=== PATIENT | male | born 1990 | race Caucasian/White ===

== ENCOUNTER 2023-04-21 13:46 | Emergency (ER) | payer SELFPAY ==
[2023-04-21] VITALS (18 sets, daily range): BP systolic 87–112; BP diastolic 34–85; BMI 28.7
--- NOTE | 2023-04-21 14:08 | ED.GENMED ---
History of Present Illness
General
Chief Complaint: Overdose Intentional
Source: patient
Time Seen by Provider: 04/21/23 13:58
Travel History
Have you had any contact with someone who has COVID-19?: No
Do you have any symptoms of coronavirus? Fever > 100 degrees, chills, cough, shortness of breath, sore throat, loss of taste or smell, muscle aches, or headache?: No
History of Present Illness
History of Present Illness:
32-year-old male brought to the emerged by ambulance after being found unresponsive by his mother. Patient insufflated 2 bags of heroin. He also drank at least 2 beers. He denies ingesting any pills. Patient did this in a suicide attempt. He
had evidently left a suicide note. Mom found him he was unresponsive and she started CPR. Him police arrived first they administered nasal Narcan x 2. Paramedics arrived the patient was awake and breathing spontaneously. During transport to the
hospital he again became somnolent and 1 mg of IV the Narcan was given. At the time my evaluation patient is awake, answering questions appropriately and does not deny that this was a suicide attempt. He states he was thinking about killing
himself last night and wishes he had done it last night because that he would not have been found by his mom. He states he is angry at his mother for saving him.
Past History
Past History
ED Past Medical History: Asthma and Other (Poor circulation in feet)
ED Past Surgical History: None
Social History
Tobacco: Smoker
Alcohol: Occasional
Personal: Single
Living: with family
Phy Exam
Physical Exam
Physical Exam:
General: Awake, Alert, Oriented X3. No acute distress.
Vitals: unremarkable
Head: Atraumatic
Eyes: Pupils equal at 3 mm, EOMI
Throat: Airway intact, no exudates
Neck: Trachea midline
Lungs: Clear and equal b/l
Heart: Regular rate, no murmurs
Abd: Soft, Nontender, No pulsatile mass
Neuro: Nonfocal
Skin: Warm, dry, no rash
Extremities: pulses equal b/l, no edema
Course
Orders/Labs/Results
Orders:
Orders
04/21/23 14:03
Electrocardiogram (*1) Urgent
Reason for Study: Other
Other Reason for Exam: Potential overdose
Bedside Glucose- Treatment ONCE
Cardiac Monitoring- Treatment ONCE
EKG- Treatment ONCE
IV Insert/Care/Rem.- Treatment PRN
Pulse Ox/spot Check [RESP] Urgent
Quantity: 1
04/21/23 14:05
Acetaminophen Urgent
Alcohol Urgent
Complete Blood Count/With Diff Urgent
Comprehensive Metabolic Panel Urgent
Salicylate Urgent
04/21/23 14:08
0.9% Sodium Chloride 1000 ml [Nss] 1,000 ml IV BOLUS
04/21/23 15:09
Drug Screen, Urine [Urine Drug Abuse Screen] Urgent
Date Specimen was Collected: 04/21/23
Time Specimen was Collected: 15:09
Fentanyl, Urine Urgent
04/21/23 18:30
Nicotine [Nicoderm Transdermal] 14 mg TRANSDERM NOW STA
04/22/23 08:00
Nicotine [Nicoderm Transdermal] 14 mg TRANSDERM DAILY
Abnormal Lab Results
04/21/23 04/21/23
14:05 15:09
WBC 14.7 H 10^3/uL
(4.8-10.8)
Abs Immat Gran (auto) 0.1 H 10^3/uL
(0-0.05)
Absolute Neuts (auto) 12.5 H 10^3/uL
(1.4-6.5)
Absolute Lymphs (auto) 1.0 L 10^3/uL
(1.2-3.4)
Absolute Monos (auto) 1.0 H 10^3/uL
(0.1-0.6)
Neutrophils % 85.4 H %
(42.2-75.2)
Lymphocytes % 6.9 L %
(20.5-51.1)
Sodium 133 L mmol/L
(135-145)
Creatinine 1.5 H mg/dL
(0.7-1.3)
Glucose 146 H mg/dl
(70-99)
AST 244 H U/L
(17-59)
ALT 72 H U/L
(0-50)
Total Protein 6.2 L g/dl
(6.3-8.2)
Salicylates < 1.0 L mg/dl
(2.0-20.0)
Urine Fentanyl Screen Positive H
(Negative)
Acetaminophen < 10 L ug/ml
(10-30)
U Marijuana (THC) Screen Positive H
(Negative)
04/21/23 14:05
04/21/23 14:05
Vital Signs
Initial and Last Documented VS:
Initial Vital Signs
BP
112/65
04/21/23 13:50
Last Documented Vital Signs
Temp Pulse Resp BP Pulse Ox
98.7 F 58 19 95/45 97
04/21/23 13:52 04/21/23 17:15 04/21/23 17:15 04/21/23 17:15 04/21/23 17:07
MDM/Problems Addressed
Differential Diagnosis Includes:
Opiate overdose, acetaminophen overdose, alcohol intoxication
MDM/Problems Addressed:
Patient received multiple doses of Narcan. Here in the emergency room he remained stable not requiring any further doses of Narcan. Police petition for 302. I agree the patient clearly demonstrates suicidal thoughts and is remaining suicidal.
302 upheld.
*EKG
Interpreted by ED Provider?: Yes
Heart Rate: 61
Rate: normal
Rhythm: sinus
Sherman: normal axis
Interval: normal interval
QRS Pattern: normal QRS
Ischemia: no ischemia
*Inward Toll Operator Interpretation
Rate: normal
Interpretation: normal
Heart Rate: 61
Rhythm: sinus
*Critical Care Note
Total Time (30-74mins, 75-104mins- exclusive of procedures): Not Applicable
ED Attending Note
-
Portions of this chart may have been created with voice recognition software.� Occasional wrong word or��sound alike� substitutions may have occurred due to the inherent limitations of voice recognition software.
Discharge Plan
Departure
Patient Disposition: Psych Facility
Date of Disposition: 04/21/23
Time of Disposition: 15:47
Patient Status:: 302
Discharge Problem:
Suicide attempt, Intentional opiate overdose
Prescriptions:
No Action
prednisone 20 mg tablet
40 mg PO DAILY Qty: 8 0RF
amoxicillin-pot clavulanate 875-125 mg tablet
1 tab PO BID Qty: 19 0RF
Referrals:
NONE,* [Family Provider] -
Interventions
Interventions:
*Risk Screen - Suicide Last Done: 04/21/23 13:55
*General Assessment Last Done: 04/21/23 13:55
*Neglect/Abuse Screening Last Done: 04/21/23 13:55
ED- Fall Risk Assessment Last Done: 04/21/23 14:29
*ED COVID-19 Vaccine History Last Done: 04/21/23 13:55
ED- Cardiac Assessment Last Done: 04/21/23 14:29
ED- Neurological Assessment Last Done: 04/21/23 14:29
ED-Psychological Assessment Last Done: 04/21/23 14:29
ED- Pulmonary Assessment Last Done: 04/21/23 14:29
[2023-04-21 14:12] LABS: % Basophils 0.4 % (0-2); % Eosinophils 0.3 % (0-6); % Immature Granulocytes 0.5 % (0-0.5); % Lymphocytes 6.9 % (20.5-51.1); % Monocytes 6.5 % (1.7-9.3); % Neutrophils 85.4 % (42.2-75.2); Absolute Basophils 0.1 10^3/uL (0-0.2); Absolute Immature Granulocytes 0.1 10^3/uL (0-0.05); Absolute Neutrophils 12.5 10^3/uL (1.4-6.5); Hemoglobin 14.8 g/dL (13.0-18.0); Mean Corp Hgb Conc. 35.2 g/dL (33.0-37.0); Mean Corpuscular Volume 87.9 fL (80.0-94.0); Mean Platelet Volume 9.7 fL (7.4-10.4); Nucleated Red Blood Cells % 0 % (-); Platelet Count 247 10^3/uL (130-400); Red Blood Cell Count 4.78 10^6/uL (4.70-6.10); Red Cell Dist. Width 12.4 % (11.5-14.5); White Blood Cell Count 14.7 10^3/uL (4.8-10.8)
[2023-04-21] MEDS: NSS 1000 IV (14:12)
[2023-04-21 14:28] LABS: ALT (SGPT) 72 U/L (0-50); AST (SGOT) 244 U/L (17-59); Acetaminophen < 10 ug/ml (10-30); Albumin 3.9 g/dl (3.5-5.0); Alkaline Phosphatase 73 U/L (38-126); Blood Urea Nitrogen 17 mg/dl (9-20); Calcium 8.4 mg/dl (8.4-10.2); Carbon Dioxide 26 mmol/L (22-30); Chloride 100 mmol/L (98-107); Estimated Creatinine Clearance 65 ml/min; Glucose 146 mg/dl (70-99); Potassium 3.5 mmol/L (3.5-5.1); Salicylate < 1.0 mg/dl (2.0-20.0); Sodium 133 mmol/L (135-145); Total Bilirubin 0.6 mg/dl (0.2-1.3); Total Protein 6.2 g/dl (6.3-8.2); eGFR > 60.00
[2023-04-21 14:30] LABS: Alcohol None Detected
[2023-04-21 15:43] LABS: Amphetamines Negative (Negative)
[2023-04-21 15:44] LABS: Barbiturates Negative (Negative); Benzodiazepines Negative (Negative); Buprenorphine Negative (Negative); Cocaine Negative (Negative); Marijuana Positive (Negative); Methadone Negative (Negative); Methamphetamines Negative (Negative); Opiates Negative (Negative); Phencyclidine Negative (Negative); Tricyclic Antidepressants Negative (Negative)
[2023-04-21 16:04] LABS: Fentanyl, Urine Positive (Negative)
[2023-04-21] MEDS: NICODERM TRANSDERMAL 14 MG TRANSDERM (18:51)
--- NOTE | 2023-04-21 23:55 | ED.GENMED ---
History of Present Illness
General
Chief Complaint: Overdose Intentional
Time Seen by Provider: 04/21/23 13:58
Travel History
Have you had any contact with someone who has COVID-19?: No
Do you have any symptoms of coronavirus? Fever > 100 degrees, chills, cough, shortness of breath, sore throat, loss of taste or smell, muscle aches, or headache?: No
History of Present Illness
History of Present Illness:
.
Past History
Past History
ED Past Medical History: Asthma and Other (Poor circulation in feet)
ED Past Surgical History: None
Social History
Tobacco: Smoker
Alcohol: Occasional
Personal: Single
Living: with family
Phy Exam
Physical Exam
Physical Exam:
.
Course
Orders/Labs/Results
Orders:
Orders
04/21/23 14:03
Electrocardiogram (*1) Urgent
Reason for Study: Other
Other Reason for Exam: Potential overdose
Bedside Glucose- Treatment ONCE
Cardiac Monitoring- Treatment ONCE
EKG- Treatment ONCE
IV Insert/Care/Rem.- Treatment PRN
Pulse Ox/spot Check [RESP] Urgent
Quantity: 1
04/21/23 14:05
Acetaminophen Urgent
Alcohol Urgent
Complete Blood Count/With Diff Urgent
Comprehensive Metabolic Panel Urgent
Salicylate Urgent
04/21/23 14:08
0.9% Sodium Chloride 1000 ml [Nss] 1,000 ml IV BOLUS
04/21/23 15:09
Drug Screen, Urine [Urine Drug Abuse Screen] Urgent
Date Specimen was Collected: 04/21/23
Time Specimen was Collected: 15:09
Fentanyl, Urine Urgent
04/21/23 18:30
Nicotine [Nicoderm Transdermal] 14 mg TRANSDERM NOW STA
04/21/23 23:55
Zolpidem Tartrate [Ambien] 5 mg PO NOW STA
04/22/23 08:00
Nicotine [Nicoderm Transdermal] 14 mg TRANSDERM DAILY
Abnormal Lab Results
04/21/23 04/21/23
14:05 15:09
WBC 14.7 H 10^3/uL
(4.8-10.8)
Abs Immat Gran (auto) 0.1 H 10^3/uL
(0-0.05)
Absolute Neuts (auto) 12.5 H 10^3/uL
(1.4-6.5)
Absolute Lymphs (auto) 1.0 L 10^3/uL
(1.2-3.4)
Absolute Monos (auto) 1.0 H 10^3/uL
(0.1-0.6)
Neutrophils % 85.4 H %
(42.2-75.2)
Lymphocytes % 6.9 L %
(20.5-51.1)
Sodium 133 L mmol/L
(135-145)
Creatinine 1.5 H mg/dL
(0.7-1.3)
Glucose 146 H mg/dl
(70-99)
AST 244 H U/L
(17-59)
ALT 72 H U/L
(0-50)
Total Protein 6.2 L g/dl
(6.3-8.2)
Salicylates < 1.0 L mg/dl
(2.0-20.0)
Urine Fentanyl Screen Positive H
(Negative)
Acetaminophen < 10 L ug/ml
(10-30)
U Marijuana (THC) Screen Positive H
(Negative)
04/21/23 14:05
04/21/23 14:05
Vital Signs
Initial and Last Documented VS:
Initial Vital Signs
BP
112/65
04/21/23 13:50
Last Documented Vital Signs
Temp Pulse Resp BP Pulse Ox
97.6 F 64 16 109/63 98
04/21/23 21:08 04/21/23 21:08 04/21/23 21:08 04/21/23 21:08 04/21/23 21:08
*Critical Care Note
Total Time (30-74mins, 75-104mins- exclusive of procedures): Not Applicable
Update Note
Update Note:
1155 pm pt awake and alert, describes very infrequent opioid use and does not suspect he will go through withdrawal, no regular benzo use, last meth use at least a month ago. Requesting med for insomnia. Will give small dose ambien.
ED Attending Note
-
Portions of this chart may have been created with voice recognition software.� Occasional wrong word or��sound alike� substitutions may have occurred due to the inherent limitations of voice recognition software.
Discharge Plan
Departure
Patient Disposition: Psych Facility
Date of Disposition: 04/21/23
Time of Disposition: 15:47
Patient Status:: 302
Discharge Problem:
Suicide attempt, Intentional opiate overdose
Prescriptions:
No Action
prednisone 20 mg tablet
40 mg PO DAILY Qty: 8 0RF
amoxicillin-pot clavulanate 875-125 mg tablet
1 tab PO BID Qty: 19 0RF
Referrals:
NONE,* [Family Provider] -
Interventions
Interventions:
*Risk Screen - Suicide Last Done: 04/21/23 13:55
*General Assessment Last Done: 04/21/23 13:55
*Neglect/Abuse Screening Last Done: 04/21/23 13:55
ED- Fall Risk Assessment Last Done: 04/21/23 14:29
*ED COVID-19 Vaccine History Last Done: 04/21/23 13:55
ED- Cardiac Assessment Last Done: 04/21/23 14:29
ED- Neurological Assessment Last Done: 04/21/23 14:29
ED-Psychological Assessment Last Done: 04/21/23 14:29
ED- Pulmonary Assessment Last Done: 04/21/23 14:29
[2023-04-22] MEDS: AMBIEN 5 MG PO
== END 2023-04-22 11:36 ==
LOC: EMR 13:46
PROVIDERS: EMERGENCY PHYSICIAN Emergency Medicine
DX: T40.1X2A Poisoning by heroin, intentional self-harm, initial encounter (principal); F17.200 Nicotine dependence, unspecified, uncomplicated
CPT/HCPCS: 99285; 96360; 80053; 80143; 80179; 80306; 80307; 82077; 85025; 93005

== ENCOUNTER 2023-05-17 15:04 | Emergency (ER) | payer BC, SELFPAY ==
[2023-05-17 15:07] VITALS: BMI 29.0
[2023-05-17 15:13] VITALS: BP 149/88
[2023-05-17 15:30] LABS: % Eosinophils 1.1 % (0-6); % Immature Granulocytes 0.5 % (0-0.5); % Lymphocytes 13.5 % (20.5-51.1); % Monocytes 6.5 % (1.7-9.3); % Neutrophils 77.4 % (42.2-75.2); Absolute Basophils 0.1 10^3/uL (0-0.2); Absolute Eosinophils 0.1 10^3/uL (0-0.7); Absolute Immature Granulocytes 0.1 10^3/uL (0-0.05); Absolute Lymphocytes 1.5 10^3/uL (1.2-3.4); Absolute Monocytes 0.7 10^3/uL (0.1-0.6); Absolute Neutrophils 8.4 10^3/uL (1.4-6.5); Hematocrit 48.1 % (39.0-52.0); Hemoglobin 17.1 g/dL (13.0-18.0); Mean Corp Hgb Conc. 35.6 g/dL (33.0-37.0); Mean Corpuscular Hgb 30.6 pg (27.0-31.0); Mean Corpuscular Volume 86.2 fL (80.0-94.0); Mean Platelet Volume 9.4 fL (7.4-10.4); Nucleated Red Blood Cells % 0 % (-); Platelet Count 322 10^3/uL (130-400); Red Blood Cell Count 5.58 10^6/uL (4.70-6.10); Red Cell Dist. Width 11.9 % (11.5-14.5); White Blood Cell Count 10.8 10^3/uL (4.8-10.8)
[2023-05-17 15:44] LABS: ALT (SGPT) 23 U/L (0-50); AST (SGOT) 25 U/L (17-59); Acetaminophen < 10 ug/ml (10-30); Albumin 4.4 g/dl (3.5-5.0); Alkaline Phosphatase 82 U/L (38-126); Blood Urea Nitrogen 15 mg/dl (9-20); Calcium 9.5 mg/dl (8.4-10.2); Carbon Dioxide 24 mmol/L (22-30); Estimated Creatinine Clearance 85 ml/min; Glucose 93 mg/dl (70-99); Salicylate < 1.0 mg/dl (2.0-20.0); Total Bilirubin 0.6 mg/dl (0.2-1.3); Total Protein 7.3 g/dl (6.3-8.2); eGFR > 60.00
[2023-05-17 15:46] LABS: Alcohol None Detected
--- NOTE | 2023-05-17 15:47 | ED.GENMED ---
History of Present Illness
General
Chief Complaint: Crisis Evaluation
Source: patient
Exam Limitations: none
Time Seen by Provider: 05/17/23 15:18
Nursing documentation reviewed up to this point in time: agreed with
Travel History
Have you had any contact with someone who has COVID-19?: No
Do you have any symptoms of coronavirus? Fever > 100 degrees, chills, cough, shortness of breath, sore throat, loss of taste or smell, muscle aches, or headache?: No
History of Present Illness
History of Present Illness:
33-year-old male history of mental illness he states he has been having thoughts of harming himself and harming others 302 completed by his mother he has been at [facility], he tells me this all started about a year ago after he used
methamphetamine
Past History
Past History
ED Past Medical History: Asthma, Psychiatric and Other (Poor circulation in feet)
ED Past Surgical History: None
Social History
Tobacco: Smoker
Alcohol: Occasional
Drug: Former user
Personal: Single
Living: with family
Employment: Employed
Review of Systems
Review of Systems
All Other Systems: Not applicable
Psychiatric: Reports suicidal, hallucinations and other (Homicidal)
Phy Exam
Physical Exam
Physical Exam:
Physical Exam
General: no apparent distress, not acutely ill
Neck: Without jaundice
Heart: Regular
Lungs: no acute respiratory distress. clear bilaterally
Neuro: alert and oriented. no focal neurological deficits
Skin: no rash
Psychiatric: Cooperative admits to suicidal thoughts and occasional homicidal thoughts
Extremities: no edema.
Course
Orders/Labs/Results
Orders:
Orders
05/17/23 15:18
Acetaminophen Urgent
Alcohol Urgent
Complete Blood Count/With Diff Urgent
Comprehensive Metabolic Panel Urgent
Salicylate Urgent
Abnormal Lab Results
05/17/23
15:18
Abs Immat Gran (auto) 0.1 H 10^3/uL
(0-0.05)
Absolute Neuts (auto) 8.4 H 10^3/uL
(1.4-6.5)
Absolute Monos (auto) 0.7 H 10^3/uL
(0.1-0.6)
Neutrophils % 77.4 H %
(42.2-75.2)
Lymphocytes % 13.5 L %
(20.5-51.1)
Salicylates < 1.0 L mg/dl
(2.0-20.0)
Acetaminophen < 10 L ug/ml
(10-30)
05/17/23 15:18
05/17/23 15:18
Vital Signs
Initial and Last Documented VS:
Initial Vital Signs
Temp Pulse Resp BP Pulse Ox
98.9 F 96 16 149/88 98
05/17/23 15:13 05/17/23 15:13 05/17/23 15:13 05/17/23 15:13 05/17/23 15:13
Last Documented Vital Signs
Temp Pulse Resp BP Pulse Ox
98.9 F 96 16 149/88 98
05/17/23 15:13 05/17/23 15:13 05/17/23 15:13 05/17/23 15:13 05/17/23 15:13
MDM/Problems Addressed
Differential Diagnosis Includes:
Acute psychosis acute suicidality homicidality medication induced psychosis
MDM/Problems Addressed:
Psychosis
Chronic conditions affecting care:
Mental illness
*Critical Care Note
Total Time (30-74mins, 75-104mins- exclusive of procedures): Not Applicable
Update Note
Update Note:
4:30 PM labs noted, patient 302 upheld by psychiatry I concur medically clear
ED Attending Note
-
Portions of this chart may have been created with voice recognition software.� Occasional wrong word or��sound alike� substitutions may have occurred due to the inherent limitations of voice recognition software.
Discharge Plan
Departure
Patient Disposition: Psych Facility
Date of Disposition: 05/17/23
Time of Disposition: 16:29
Discharge Problem:
Suicidal ideation
Prescriptions:
No Action
prednisone 20 mg tablet
40 mg PO DAILY Qty: 8 0RF
amoxicillin-pot clavulanate 875-125 mg tablet
1 tab PO BID Qty: 19 0RF
Interventions
Interventions:
*Risk Screen - Suicide Last Done: 05/17/23 15:07
*General Assessment Last Done: 05/17/23 15:07
*Neglect/Abuse Screening Last Done: 05/17/23 15:07
ED- Fall Risk Assessment Last Done: 05/17/23 15:13
*ED COVID-19 Vaccine History Last Done: 05/17/23 15:07
[2023-05-17 15:55] LABS: Chloride 104 mmol/L (98-107); Potassium 3.8 mmol/L (3.5-5.1); Sodium 138 mmol/L (135-145)
--- NOTE | 2023-05-17 16:36 | W.PN.UPDATE ---
Update Note
Progress Note Update
Pt seen for 302 exam. Pt resting on stretcher, alert, calm, cooperative, making good eye contact. Pt appears distressed, reports intrusive impulses/thoughts of hurting others which are distressing, cause pt to feel excess guilt. He reports SI and
fear he will be jailed. Pt initially came in voluntarily, then left the ED, states he was walking on train tracks, though he denies intent to jump in front of a train. Pt reports he benefited from Prozac, prescribed previously at [facility]. Pt denies
being on any medication currently.
Imp: Unspecified Psychotic d/o, R/o MDD with psychotic features
Rec: [id number] upheld. Referral to inpatient psychiatric facility
Will start Prozac, Ativan prn
[2023-05-17 20:13] VITALS: BP 137/91
== END 2023-05-17 20:16 ==
LOC: EMR 15:04
PROVIDERS: Emergency Medicine; EMERGENCY PHYSICIAN Emergency Medicine
DX: R45.851 Suicidal ideations (principal); R44.3 Hallucinations, unspecified; F17.200 Nicotine dependence, unspecified, uncomplicated
CPT/HCPCS: 99285; 80053; 80143; 80179; 82077; 85025